=== PATIENT | male | born 1965 | race Caucasian/White ===

== ENCOUNTER 2016-05-15 15:58 | Emergency (ER) | payer BC ==
[2016-05-15] MEDS ORDERED: ONDANSETRON 4 MG/2 ML VIAL IVP STA (17:33)
[2016-05-15] MEDS ORDERED: SODIUM CHLORIDE 0.9% 1,000 ML IV STA (17:33)
[2016-05-15] MEDS ORDERED: ACETAMINOPHEN IV (For NPO) 1,000 MG in SALINE 100 100ML.BAG IVPB STA (17:34)
--- NOTE | 2016-05-15 17:36 | ED ---
General Adult HPI - General Chief complaint: Abdominal Pain Stated complaint: Stomach Pain Time Seen by Provider: 05/15/16 17:26 Source: patient, RN notes reviewed Mode of arrival: ambulatory Limitations: no limitations - History of Present Illness Initial comments: Patient is a 51-year-old male who presents emergency room today with chief complaint of increased lower abdominal pain that began this morning. He does admit pain started after eating apple. States pain has progressed today. States it reminds him of symptoms that he had when he had an episode of diverticulitis proximate 10 years ago. Patient describes a sharp pain located in the left lower quadrant. Patient admits is worse with palpation. He denies any other complaints or associated symptoms. Patient denies any recent fever, chills, shortness of breath, chest pain, back pain, nausea or vomiting, numbness or tingling, dysuria or hematuria, constipation or diarrhea, headaches or visual changes, or any other complaints. - Related Data Home Medications Medication Instructions Recorded Confirmed Albuterol Inhaler [Ventolin Hfa 1 - 2 puff INHALATION RT-Q6H PRN 05/15/16 Inhaler] Previous Rx's Medication Instructions Recorded Ciprofloxacin HCl [Cipro] 500 mg PO Q12HR #20 day 05/15/16 Hydrocodone/Acetaminophen [Gering 1 each PO Q6HR PRN #20 tab 05/15/16 5-325] metroNIDAZOLE [Flagyl] 500 mg PO TID 7 Days 05/15/16 Allergies Allergy/AdvReac Type Severity Reaction Status Date / Time Penicillins Allergy Rash/Hives Verified 05/15/16 17:42 Review of Systems ROS Statement: Those systems with pertinent positive or pertinent negative responses have been documented in the HPI. ROS Other: All systems not noted in ROS Statement are negative. Past Medical History Past Medical History: Asthma Additional Past Medical History / Comment(s): diverticulitis History of Any Multi-Drug Resistant Organisms: None Reported Past Surgical History: Cholecystectomy Past Psychological History: No Psychological Hx Reported Smoking Status: Never smoker Past Alcohol Use History: Occasional Past Drug Use History: None Reported General Exam - General Exam Comments Initial Comments: General: The patient is awake and alert, in no distress, and does not appear acutely ill. Eye: Pupils are equal, round and reactive to light, extra-ocular movements are intact. No nystagmus. There is normal conjunctiva bilaterally. No signs of icterus. Ears, nose, mouth and throat: There are moist mucous membranes and no oral lesions. Neck: The neck is supple, there is no tenderness or JVD. Cardiovascular: There is a regular rate and rhythm. No murmur, rub or gallop is appreciated. Respiratory: Lungs are clear to auscultation, respirations are non-labored, breath sounds are equal. No wheezes, stridor, rales, or rhonchi. Gastrointestinal: Normal. Statin. Normal bowel sounds. Abdomen soft on palpation. Patient does have tenderness left lower quadrant. No rebound tenderness. No guarding. No CVA tenderness. Musculoskeletal: Normal ROM, no tenderness. Strength 5/5. Sensation intact. Pulses equal bilaterally 2+. Neurological: A&O x 3. CN II-XII intact, There are no obvious motor or sensory deficits. Coordination appears grossly intact. Speech is normal. Skin: Skin is warm and dry and no rashes or lesions are noted. Psychiatric: Cooperative, appropriate mood & affect, normal judgment. Limitations: no limitations Course Vital Signs 05/15/16 16:18 Temperature 98.8 F Pulse Rate 73 Respiratory 17 Rate Blood Pressure 148/93 O2 Sat by Pulse 97 Oximetry Medical Decision Making - Medical Decision Making Case discussed in detail with attending physician Dr. Jaime. The patient reexamined at this time shows no signs of distress. Patient resting comfortably in the stretcher. Patient's labs been reviewed. Patient's CT does show evidence of diverticulitis. Results were discussed with the patient. Patient will be discharged home. He'll be started on antibiotics of ciprofloxacin and Flagyl. prescription of pain medication use if needed. Advised follow-up the family doctor over the next 2 days. Advised return to emergency room if any symptoms increase or worsen. Patient states understanding and is in agreement. - Lab Data Result diagrams: 05/15/16 17:50 05/15/16 17:50 Lab Results 05/15/16 05/15/16 05/15/16 Range/Units 17:50 17:50 17:50 WBC 8.4 (3.8-10.6) k/uL RBC 5.39 (4.30-5.90) m/uL Hgb 16.0 (13.0-17.5) gm/dL Hct 46.5 (39.0-53.0) % MCV 86.3 (80.0-100.0) fL MCH 29.6 (25.0-35.0) pg MCHC 34.3 (31.0-37.0) g/dL RDW 12.8 (11.5-15.5) % Plt Count 224 (150-450) k/uL Neutrophils % 74 % Lymphocytes % 18 % Monocytes % 6 % Eosinophils % 1 % Basophils % 0 % Neutrophils # 6.2 (1.3-7.7) k/uL Lymphocytes # 1.5 (1.0-4.8) k/uL Monocytes # 0.5 (0-1.0) k/uL Eosinophils # 0.1 (0-0.7) k/uL Basophils # 0.0 (0-0.2) k/uL Sodium 140 (137-145) mmol/L Potassium 4.0 (3.5-5.1) mmol/L Chloride 104 (98-107) mmol/L Carbon Dioxide 23 (22-30) mmol/L Anion Gap 13 mmol/L BUN 14 (9-20) mg/dL Creatinine 0.80 (0.66-1.25) mg/dL Est GFR (MDRD) Af Amer >60 (>60 ml/min/1.73 sqM) Est GFR (MDRD) Non-Af >60 (>60 ml/min/1.73 sqM) Glucose 97 (74-99) mg/dL Plasma Lactic Acid Nathanael 0.6 L (0.7-2.0) mmol/L Calcium 9.8 (8.4-10.2) mg/dL Total Bilirubin 2.0 H (0.2-1.3) mg/dL AST 30 (17-59) U/L ALT 42 (21-72) U/L Alkaline Phosphatase 65 (38-126) U/L Total Protein 7.8 (6.3-8.2) g/dL Albumin 4.7 (3.5-5.0) g/dL Lipase 49 (23-300) U/L Urine Color Urine Appearance (Clear) Urine pH (5.0-8.0) Ur Specific [place] (1.001-1.035) Urine Protein (Negative) Urine Glucose (UA) (Negative) Urine Ketones (Negative) Urine Blood (Negative) Urine Nitrate (Negative) Urine Bilirubin (Negative) Urine Urobilinogen (<2.0) mg/dL Ur Leukocyte Esterase (Negative) Urine RBC (0-5) /hpf Urine WBC (0-5) /hpf Urine Mucus (None) /hpf 05/15/16 Range/Units 18:00 WBC (3.8-10.6) k/uL RBC (4.30-5.90) m/uL Hgb (13.0-17.5) gm/dL Hct (39.0-53.0) % MCV (80.0-100.0) fL MCH (25.0-35.0) pg MCHC (31.0-37.0) g/dL RDW (11.5-15.5) % Plt Count (150-450) k/uL Neutrophils % % Lymphocytes % % Monocytes % % Eosinophils % % Basophils % % Neutrophils # (1.3-7.7) k/uL Lymphocytes # (1.0-4.8) k/uL Monocytes # (0-1.0) k/uL Eosinophils # (0-0.7) k/uL Basophils # (0-0.2) k/uL Sodium (137-145) mmol/L Potassium (3.5-5.1) mmol/L Chloride (98-107) mmol/L Carbon Dioxide (22-30) mmol/L Anion Gap mmol/L BUN (9-20) mg/dL Creatinine (0.66-1.25) mg/dL Est GFR (MDRD) Af Amer (>60 ml/min/1.73 sqM) Est GFR (MDRD) Non-Af (>60 ml/min/1.73 sqM) Glucose (74-99) mg/dL Plasma Lactic Acid Nathanael (0.7-2.0) mmol/L Calcium (8.4-10.2) mg/dL Total Bilirubin (0.2-1.3) mg/dL AST (17-59) U/L ALT (21-72) U/L Alkaline Phosphatase (38-126) U/L Total Protein (6.3-8.2) g/dL Albumin (3.5-5.0) g/dL Lipase (23-300) U/L Urine Color Yellow Urine Appearance Clear (Clear) Urine pH 5.5 (5.0-8.0) Ur Specific [place] 1.011 (1.001-1.035) Urine Protein Negative (Negative) Urine Glucose (UA) Negative (Negative) Urine Ketones Negative (Negative) Urine Blood Trace H (Negative) Urine Nitrate Negative (Negative) Urine Bilirubin Negative (Negative) Urine Urobilinogen <2.0 (<2.0) mg/dL Ur Leukocyte Esterase Negative (Negative) Urine RBC 2 (0-5) /hpf Urine WBC <1 (0-5) /hpf Urine Mucus Rare H (None) /hpf Disposition Clinical Impression: Acute diverticulitis Disposition: HOME SELF-CARE Condition: Good Instructions: Diverticulitis (ED) Additional Instructions: Please use medication as discussed. Please follow-up with family doctor in the next 2 days of symptoms have not improved. Please return to emergency room if the symptoms increase or worsen or for any other concerns. Prescriptions: Ciprofloxacin HCl [Cipro] 500 mg PO Q12HR #20 day Hydrocodone/Acetaminophen [Gering 5-325] 1 each PO Q6HR PRN #20 tab PRN Reason: Pain metroNIDAZOLE [Flagyl] 500 mg PO TID 7 Days Time of Disposition: 19:43
[2016-05-15 18:21] LABS: ALT 42 U/L (21-72); AST 30 U/L (17-59); Alkaline Phosphatase 65 U/L (38-126); Anion Gap 13 mmol/L; Blood Urea Nitrogen 14 mg/dL (9-20); Calcium 9.8 mg/dL (8.4-10.2); Carbon Dioxide 23 mmol/L (22-30); Chloride 104 mmol/L (98-107); Glucose 97 mg/dL (74-99); Non-African American GFR(MDRD) >60 (>60 ml/min/1.73 sqM); Sodium 140 mmol/L (137-145); Total Protein 7.8 g/dL (6.3-8.2)
[2016-05-15 18:22] LABS: Basophils % (A) 0 %; CH 31.7; CHCM 36.8; Eosinophils # (A) 0.1 k/uL (0-0.7); Eosinophils % (A) 1 %; HCT 46.5 % (39.0-53.0); HDW 2.93; Luc # (Auto) 0.14; Luc % (Auto) 2; Lymphocytes # (A) 1.5 k/uL (1.0-4.8); Lymphocytes % (A) 18 %; MCH 29.6 pg (25.0-35.0); MCHC 34.3 g/dL (31.0-37.0); MCV 86.3 fL (80.0-100.0); Mean Platelet Volume 6.6; Monocytes # (A) 0.5 k/uL (0-1.0); Monocytes % (A) 6 %; Neutrophils # (A) 6.2 k/uL (1.3-7.7); Neutrophils % (A) 74 %; RBC 5.39 m/uL (4.30-5.90); RDW 12.8 % (11.5-15.5); WBC 8.4 k/uL (3.8-10.6); WBC (Perox) 8.04
--- NOTE | 2016-05-15 18:23 | XR ---
Abdomen HISTORY: Abdomen pain Frontal view of the abdomen submitted on 2 images and correlated to prior CT abdomen pelvis 18 April 2012 There is a mild spinal curvature. Lung bases are clear. Surgical clips are present in the right upper quadrant. Calcifications within the pelvis likely represent phleboliths. IMPRESSION: No acute abnormality.
[2016-05-15] MEDS ORDERED: RX INFO: IV CONTRAST WAS GIVEN 1 EACH MISC MISCELLANE PRN (18:25)
[2016-05-15 18:26] LABS: Appearance,Urine Clear (Clear); Bilirubin,Urine Negative (Negative); Glucose,Urine (UA) Negative (Negative); Ketones,Urine Negative (Negative); Leukocyte Esterase,Urine Negative (Negative); Mucus,Urine Rare /hpf; Nitrite,Urine Negative (Negative); PH, Urine 5.5 (5.0-8.0); Particle Count 1098; Protein,Urine Negative (Negative); RBC,Urine 2 /hpf (0-5); Specific Gravity,Urine 1.011 (1.001-1.035); UA Billing (MACRO vs. MICRO) MICRO; Urobilinogen,Urine <2.0 mg/dL (<2.0); WBC,Urine <1 /hpf (0-5)
--- NOTE | 2016-05-15 19:18 | CT ---
EXAMINATION TYPE: CT abdomen pelvis w con DATE OF EXAM: 05/15/2016 6:55 PM COMPARISON: Prior CT scan fourth April 2012 HISTORY: Pt states of lower abdominal pain x1 day. Hx of diverticulosis CT DLP: 1065.8 mGycm Automated exposure control for dose reduction was used. TECHNIQUE: Helical acquisition of images was performed from the lung bases through the pelvis. CONTRAST: Performed without Oral Contrast and with IV Contrast, patient injected with 100 mL of Omnipaque 300. FINDINGS: LUNG BASES: No significant abnormality is appreciated. LIVER/GB: Patient is post cholecystectomy. Liver shows low attenuation, the liver is enlarged. PANCREAS: No significant abnormality is seen. SPLEEN: No significant abnormality is seen. ADRENALS: No significant abnormality is seen. KIDNEYS: No significant abnormality is seen. RETROPERITONEAL ADENOPATHY: None visualized REPRODUCTIVE ORGANS: There are prostate calcifications. URINARY BLADDER: No significant abnormality is seen. PELVIC ADENOPATHY: None visualized. OSSEOUS STRUCTURES: No significant abnormality is seen. BOWEL: There is inflammatory change, diverticular change in the left lower quadrant, rectosigmoid ju nction. 30 fat is present. There is some local wall thickening. OTHER: IMPRESSION: FINDINGS COMPATIBLE WITH DIVERTICULITIS. FOLLOW-UP RECOMMENDED.
[2016-05-15 19:56] VITALS: BP 132/92; PULSE 79; RESP 16; TEMP 98.9
== END 2016-05-15 20:09 | disposition home or self-care (01) ==
LOC: EC 15:58
DX: K57.92 Diverticulitis of intestine, part unspecified, without perforation or abscess without bleeding (principal); Z88.0 Allergy status to penicillin
CPT/HCPCS: 36415; 80053; 83605; 83690; 85025; 81001; 74000; 74177; 99284; 96374; 96375; 96361; J2405; Q9967; J0131

== ENCOUNTER → 2016-09-17 | Day surgery (SDC) | payer BC ==
[2016-09-13 12:42] VITALS: BMI 29.1
[~2016-09-17] MED LIST: LACTATED RINGERS 1,000 ML IV SCH; LIDOCAINE 1% 20 ML VIAL (10MG/ML) FOR IV START INTRADERMA PRN; PROPOFOL 10 MG/ML 20 ML VIAL IV ONE
[2016-09-17 09:12] VITALS: TEMP 97.3
--- NOTE | 2016-09-17 10:20 | P.PCN ---
Date of Procedure: 09/17/16 Preoperative Diagnosis: Postoperative Diagnosis: Procedure(s) Performed: Procedure: Total colonoscopy. Preoperative diagnosis: Screening for neoplasia. Postoperative diagnosis: Diverticulosis with no evidence of acute diverticulitis , strictures, polyps or cancer. Preparation: HalfLytely prep. Sedation: Was provided by anesthesia. Brief clinical history: The patient is a 51-year-old male who is scheduled for this evaluation for screening for neoplasia age being his risk factor. His mother had stomach cancer, but there is no family history of colon cancer. The patient has no abdominal complaints at this time or any bleeding or anemia. He had a prior colonoscopy 5 or 6 years ago following a bout of diverticulitis. Procedure: With the patient on his left lateral decubitus position and after informed consent and adequate sedation, the perianal area was inspected and it did not show any fissures or fistulas. There were no masses felt on digital rectal examination. The Olympus CFQ 160L video colonoscope was then inserted in the rectum in the usual fashion and advanced to the cecum. There were multiple diverticular orifices seen scattered in the sigmoid with no evidence of acute diverticulitis or strictures. There was some submucosal hemorrhages seen in the vicinity of diverticular orifices raising the possibility of prior bout of diverticulitis. There was occasional small diverticular orifice seen on the right colon and cecum. No polyps or tumors were seen. I retroflexed the endoscope in the rectum before the endoscope was withdrawn. Low-grade internal hemorrhoids were noted but there was no bleeding. The patient tolerated the procedure well. Plan: The patient was reassured. Discussed dietary measures. In the absence of family history of colon cancer, and the absence of history of polyps, I recommended a repeat exam in 10 years. He will follow up with you as planned. Implants: Indications for Procedure: Operative Findings: Description of Procedure:
[2016-09-17 10:22] VITALS: RESP 18
[2016-09-17 10:45] VITALS: BP 125/83; PULSE 86
== END ==
LOC: ORWHC2ENDO 08:27
DX: Z12.11 Encounter for screening for malignant neoplasm of colon (principal); K57.30 Diverticulosis of large intestine without perforation or abscess without bleeding; K64.8 Other hemorrhoids; J45.909 Unspecified asthma, uncomplicated; Z88.0 Allergy status to penicillin; Z80.0 Family history of malignant neoplasm of digestive organs; Z79.899 Other long term (current) drug therapy
CPT/HCPCS: J2704; G0121

== ENCOUNTER 2016-10-08 09:38 | Day surgery (SDC) | payer BC ==
[2016-10-03 12:11] VITALS: BMI 29.2
[~2016-10-08 09:38] MED LIST changes: -PROPOFOL 10 MG/ML 20 ML VIAL IV ONE
[2016-10-08 09:59] VITALS: TEMP 97.8
[2016-10-08] MEDS ORDERED: PROPOFOL 10 MG/ML 20 ML VIAL IV ONE (10:35)
--- NOTE | 2016-10-08 10:56 | P.PCN ---
Date of Procedure: 10/08/16 Preoperative Diagnosis: Postoperative Diagnosis: Procedure(s) Performed: Procedure: Esophagogastroduodenoscopy and biopsy. Preoperative diagnosis: Dyspepsia and family history of gastric cancer in his mother. Postoperative diagnosis: 1. Small sliding hiatal hernia with no obvious esophagitis or complicated reflux disease. 2. Antral gastritis with no ulcers or gastric outlet obstruction. 3. Multiple biopsies obtained from the duodenum , antrum and esophagus. Preparation and sedation: Was provided by anesthesia. Brief clinical history: The patient is a 51-year-old male who I have evaluated earlier this month with colonoscopy that showed evidence of diverticulosis. The patient has family history of stomach cancers in his mother and has been having nausea-kind symptoms since around May. He is worried that we could be dealing with upper GI pathology. This evaluation is to assess for peptic ulcer disease, cancer or other pathology. Procedure: With the patient on his left lateral decubitus position and after informed consent and adequate sedation, I passed the Olympus-GIF 160 video upper endoscope through the cricopharyngeus down the esophagus. GE junction was around 41-42 cm from the incisors and there was a small sliding hiatal hernia between 1-2 cm. The esophagus did not show any obvious erosions, ulcers , strictures or Chapa's esophagus. The endoscope was then passed into the stomach which was insufflated with air and inspected in detail including the retroflex view in the cardia. There was some mottling and erythema in the antrum with linear submucosal hemorrhages but no ulcers or erosions. Pyloric channel, duodenal bulb, post bulbar area and descending duodenum appeared within normal limits. I obtained pictures then I obtained biopsies from the duodenum, antrum and esophagus before the endoscope was withdrawn. The patient tolerated the procedure well. Plan: The patient was reassured. Will await biopsy results. Further plans can be made based on his course and biopsy results. He will follow up with you as planned and I will be happy to see in the office if his symptoms persist. Implants: Indications for Procedure: Operative Findings: Description of Procedure:
[2016-10-08 11:16] VITALS: BP 105/68; PULSE 68; RESP 16
== END 2016-10-08 11:34 | disposition home or self-care (01) ==
LOC: ORWHC2ENDO 09:38
DX: K29.70 Gastritis, unspecified, without bleeding (principal); K44.9 Diaphragmatic hernia without obstruction or gangrene; Z80.0 Family history of malignant neoplasm of digestive organs; J45.909 Unspecified asthma, uncomplicated; Z79.899 Other long term (current) drug therapy; Z88.0 Allergy status to penicillin
CPT/HCPCS: 43239; J2704; 88305; 88342

== ENCOUNTER 2018-12-23 05:24 | Emergency (ER) | payer BC ==
[2018-12-23 05:28] VITALS: RESP 18; TEMP 97.6
--- NOTE | 2018-12-23 05:53 | ED ---
Abdominal Pain HPI - General Source: patient Mode of arrival: ambulatory Limitations: no limitations <Brianda Waterman - Last Filed: 12/23/18 07:20> <Kody Dennis - Last Filed: 12/23/18 08:47> - General Chief Complaint: Abdominal Pain Stated Complaint: abd pain Time Seen by Provider: 12/23/18 05:48 - History of Present Illness Initial Comments: Jessica is a 53-year-old male presenting to the ER this morning for evaluation of progressively worsening lower abdominal pain. Patient reports that he has a history of diverticulitis approximately 2 years ago. He states that yesterday evening he began having lower abdominal pain Him awake throughout the night. Pain is associated with decreased appetite. No change in bowel or bladder habits. Patient's concerning is her recurrent episodes of diverticulitis. (Brianda Waterman) - Related Data Home Medications Medication Instructions Recorded Confirmed Albuterol Inhaler [Ventolin Hfa 2 puff INHALATION RT-Q6H PRN 12/23/18 12/23/18 Inhaler] Previous Rx's Medication Instructions Recorded Ciprofloxacin HCl [Cipro] 500 mg PO Q12HR #18 tablet 12/23/18 metroNIDAZOLE [Flagyl] 500 mg PO QID #40 tab 12/23/18 Allergies Allergy/AdvReac Type Severity Reaction Status Date / Time Penicillins Allergy Rash/Hives Verified 12/23/18 07:40 Review of Systems ROS Other: All systems not noted in ROS Statement are negative. <Brianda Waterman - Last Filed: 12/23/18 07:20> ROS Other: All systems not noted in ROS Statement are negative. <Kody Dennsi - Last Filed: 12/23/18 08:47> ROS Statement: Those systems with pertinent positive or pertinent negative responses have been documented in the HPI. Past Medical History Past Medical History: Asthma, Pneumonia Additional Past Medical History / Comment(s): diverticulitis History of Any Multi-Drug Resistant Organisms: None Reported Past Surgical History: Cholecystectomy, Orthopedic Surgery Additional Past Surgical History / Comment(s): ARVIND SHOULDER SURGERY, COLONOSCOPY. Past Anesthesia/Blood Transfusion Reactions: No Reported Reaction Past Psychological History: No Psychological Hx Reported Smoking Status: Never smoker - Past Family History Mother Family Medical History: Cancer Additional Family Medical History / Comment(s): STOMACH CANCER, BRAIN TUMOR, FROM ANEURYSM. <Brianda Waterman - Last Filed: 12/23/18 07:20> General Exam Limitations: no limitations <Brianda Waterman - Last Filed: 12/23/18 07:20> - General Exam Comments Initial Comments: Physical Exam GENERAL: Uncomfortable appearing male, appears stated age HENT: Normocephalic, Atraumatic. EYES: PERRL, EOMI PULMONARY: Unlabored respirations. No audible rales rhonchi or wheezing was noted. CARDIOVASCULAR: There is a regular rate and rhythm without any murmurs gallops or rubs. ABDOMEN: SKIN: Skin is clear with no lesions or rashes and otherwise unremarkable. : Deferred NEUROLOGIC: Patient is alert and oriented x3. Moving all extremities spontaneously MUSCULOSKELETAL: Normal extremities with adequate strength and full range of motion. No lower extremity swelling or edema. No calf tenderness. PSYCHIATRIC: Normal psychiatric evaluation. (Brianda Waterman) Course Vital Signs 12/23/18 12/23/18 05:24 06:57 Temperature 97.6 F 97.6 F Pulse Rate 75 86 Respiratory 18 18 Rate Blood Pressure 145/94 122/102 O2 Sat by Pulse 100 96 Oximetry Medical Decision Making - Lab Data Result diagrams: 12/23/18 05:51 12/23/18 05:51 <Brianda Waterman - Last Filed: 12/23/18 07:20> - Lab Data Result diagrams: 12/23/18 05:51 12/23/18 05:51 - Radiology Data Radiology results: report reviewed (ET scan of the abdomen pelvis shows acute uncompensated diverticulitis, similar to previous evaluation in 2017.) <Kody Dennis - Last Filed: 12/23/18 08:47> - Medical Decision Making Patient reevaluated and resting comfortably at bedside. Patient updated on results. Patient does have mild to moderate tenderness of the lower abdomen. Patient is offered admission however refuses and requests discharge with antibiotics and pain medication. (Kody Dennis) - Lab Data Lab Results 12/23/18 12/23/18 12/23/18 Range/Units 05:51 05:51 05:54 WBC 7.8 (3.8-10.6) k/uL RBC 5.00 (4.30-5.90) m/uL Hgb 15.4 (13.0-17.5) gm/dL Hct 44.2 (39.0-53.0) % MCV 88.4 (80.0-100.0) fL MCH 30.7 (25.0-35.0) pg MCHC 34.8 (31.0-37.0) g/dL RDW 14.8 (11.5-15.5) % Plt Count 185 (150-450) k/uL Neutrophils % 79 % Lymphocytes % 13 % Monocytes % 5 % Eosinophils % 2 % Basophils % 0 % Neutrophils # 6.1 (1.3-7.7) k/uL Lymphocytes # 1.0 (1.0-4.8) k/uL Monocytes # 0.4 (0-1.0) k/uL Eosinophils # 0.1 (0-0.7) k/uL Basophils # 0.0 (0-0.2) k/uL Sodium 140 (137-145) mmol/L Potassium 4.3 (3.5-5.1) mmol/L Chloride 108 H (98-107) mmol/L Carbon Dioxide 24 (22-30) mmol/L Anion Gap 8 mmol/L BUN 16 (9-20) mg/dL Creatinine 0.86 (0.66-1.25) mg/dL Est GFR (CKD-EPI)AfAm >90 (>60 ml/min/1.73 sqM) Est GFR (CKD-EPI)NonAf >90 (>60 ml/min/1.73 sqM) Glucose 115 H (74-99) mg/dL Calcium 9.6 (8.4-10.2) mg/dL Total Bilirubin 1.3 (0.2-1.3) mg/dL AST 28 (17-59) U/L ALT 24 (21-72) U/L Alkaline Phosphatase 51 (38-126) U/L Total Protein 7.0 (6.3-8.2) g/dL Albumin 4.1 (3.5-5.0) g/dL Amylase 39 (30-110) U/L Lipase 53 (23-300) U/L Urine Color Yellow Urine Appearance Clear (Clear) Urine pH 5.0 (5.0-8.0) Ur Specific [place] 1.016 (1.001-1.035) Urine Protein Negative (Negative) Urine Glucose (UA) Negative (Negative) Urine Ketones Trace H (Negative) Urine Blood Negative (Negative) Urine Nitrite Negative (Negative) Urine Bilirubin Negative (Negative) Urine Urobilinogen <2.0 (<2.0) mg/dL Ur Leukocyte Esterase Negative (Negative) Disposition <Brianda Waterman - Last Filed: 12/23/18 07:20> Is patient prescribed a controlled substance at d/c from ED?: No Time of Disposition: 08:47 <Kody Dennis - Last Filed: 12/23/18 08:47> Clinical Impression: Acute diverticulitis Disposition: HOME SELF-CARE Condition: Stable Instructions (If sedation given, give patient instructions): Diverticulitis (ED) Additional Instructions: Please follow-up to primary care physician in the next couple of days for recheck. Return for increased pain, not tolerating oral intake, fevers, vomiting, bleeding, worsening symptoms or other concerns. Antibiotic prescriptions have been [facility] to [facility]. Prescriptions: Ciprofloxacin HCl [Cipro] 500 mg PO Q12HR #18 tablet metroNIDAZOLE [Flagyl] 500 mg PO QID #40 tab Referrals: Brandi Brown MD [Primary Care Provider] - 1-2 days
[2018-12-23 06:25] LABS: ALT 24 U/L (21-72); AST 28 U/L (17-59); African American GFR (CKD) >90 (>60 ml/min/1.73 sqM); Albumin 4.1 g/dL (3.5-5.0); Alkaline Phosphatase 51 U/L (38-126); Amylase 39 U/L (30-110); Anion Gap 8 mmol/L; Blood Urea Nitrogen 16 mg/dL (9-20); Calcium 9.6 mg/dL (8.4-10.2); Carbon Dioxide 24 mmol/L (22-30); Chloride 108 mmol/L (98-107); Glucose 115 mg/dL (74-99); Potassium 4.3 mmol/L (3.5-5.1); Sodium 140 mmol/L (137-145); Total Bilirubin 1.3 mg/dL (0.2-1.3)
[2018-12-23 06:35] LABS: Basophils % (A) 0 %; Eosinophils # (A) 0.1 k/uL (0-0.7); Eosinophils % (A) 2 %; HCT 44.2 % (39.0-53.0); HGB 15.4 gm/dL (13.0-17.5); Lymphocytes % (A) 13 %; MCH 30.7 pg (25.0-35.0); MCHC 34.8 g/dL (31.0-37.0); MCV 88.4 fL (80.0-100.0); Mean Platelet Volume 7.6; Monocytes # (A) 0.4 k/uL (0-1.0); Monocytes % (A) 5 %; Neutrophils # (A) 6.1 k/uL (1.3-7.7); Neutrophils % (A) 79 %; Platelet Count 185 k/uL (150-450); RDW 14.8 % (11.5-15.5); WBC 7.8 k/uL (3.8-10.6)
[2018-12-23 06:39] LABS: Appearance,Urine Clear (Clear); Bilirubin,Urine Negative (Negative); Blood,Urine Negative (Negative); Color,Urine Yellow; Glucose,Urine (UA) Negative (Negative); Ketones,Urine Trace (Negative); Leukocyte Esterase,Urine Negative (Negative); Nitrite,Urine Negative (Negative); Protein,Urine Negative (Negative); Specific Gravity,Urine 1.016 (1.001-1.035); Urobilinogen,Urine <2.0 mg/dL (<2.0)
[2018-12-23 06:58] VITALS: BP 122/102; PULSE 86
[2018-12-23] MEDS ORDERED: MORPHINE SULFATE 4 MG/ML SYRINGE IVP STA (07:19)
[2018-12-23] MEDS ORDERED: ONDANSETRON 4 MG/2 ML VIAL IVP STA (07:19)
--- NOTE | 2018-12-23 08:03 | CT ---
EXAMINATION TYPE: CT abdomen pelvis w con DATE OF EXAM: 12/23/2018 COMPARISON: CT abdomen and pelvis May 15, 2016 HISTORY: Mid pelvic pain, history of diverticulitis. CT DLP: 1425.7 mGycm, Automated Exposure Control for Dose Reduction was Utilized. CONTRAST: CT scan of the abdomen and pelvis is performed without oral but with IV Contrast, patient injected wi th 100 mL of Isovue 300. FINDINGS: LUNG BASES: No significant abnormality is appreciated. LIVER/GB: Cholecystectomy clips are redemonstrated. Liver size stable upper limits of normal. PANCREAS: No significant abnormality is seen. SPLEEN: No significant abnormality is seen. ADRENALS: No significant abnormality is seen. KIDNEYS: No significant abnormality is seen. BOWEL: Evaluation bowel slightly suboptimal secondary to lack of enteric contrast. Stomach is poorly distended and suboptimally evaluated. No suspicious small or large bowel dilatation. A few scattered colonic diverticula with most prominent diverticula in the sigmoid colon. There is prominent divertic ulum in the upper pelvis just left of midline with moderate adjacent ill-defined fluid and fat strand ing axial image [address] and coronal image 41. CT findings consistent with acute diverticulitis. No well-fo rmed fluid collection or abscess is seen. No pneumoperitoneum is noted. PROSTATE/SEMINAL VESICLES: Prostate gland is slightly bulky and lobulated consistent with underlying BPH. Central calcifications are present. LYMPH NODES: No greater than 1cm abdominal or pelvic lymph nodes are appreciated. OSSEOUS STRUCTURES: No significant abnormality is seen. OTHER: No significant additional abnormality is seen. IMPRESSION: Redemonstration of recurrent moderate uncomplicated acute diverticulitis proximal sigmoid colon in the upper pelvis just left of midline as detailed above.
[2018-12-23] MEDS ORDERED: MORPHINE SULFATE 4 MG/ML SYRINGE IV STA (08:43)
[2018-12-23] MEDS ORDERED: metroNIDAZOLE 500 MG TAB PO STA (08:45)
[2018-12-23] MEDS ORDERED: LEVOFLOXACIN 750 MG TAB PO STA (08:45)
[2018-12-23] MEDS ORDERED: ACET/COD 300 MG/30 MG STARTER PACK 6 TAB BTL PO STA (08:47)
--- NOTE | 2018-12-23 08:57 | ED ---
Medical Decision Making - Lab Data Result diagrams: 12/23/18 05:51 12/23/18 05:51 Lab Results 12/23/18 12/23/18 12/23/18 Range/Units 05:51 05:51 05:54 WBC 7.8 (3.8-10.6) k/uL RBC 5.00 (4.30-5.90) m/uL Hgb 15.4 (13.0-17.5) gm/dL Hct 44.2 (39.0-53.0) % MCV 88.4 (80.0-100.0) fL MCH 30.7 (25.0-35.0) pg MCHC 34.8 (31.0-37.0) g/dL RDW 14.8 (11.5-15.5) % Plt Count 185 (150-450) k/uL Neutrophils % 79 % Lymphocytes % 13 % Monocytes % 5 % Eosinophils % 2 % Basophils % 0 % Neutrophils # 6.1 (1.3-7.7) k/uL Lymphocytes # 1.0 (1.0-4.8) k/uL Monocytes # 0.4 (0-1.0) k/uL Eosinophils # 0.1 (0-0.7) k/uL Basophils # 0.0 (0-0.2) k/uL Sodium 140 (137-145) mmol/L Potassium 4.3 (3.5-5.1) mmol/L Chloride 108 H (98-107) mmol/L Carbon Dioxide 24 (22-30) mmol/L Anion Gap 8 mmol/L BUN 16 (9-20) mg/dL Creatinine 0.86 (0.66-1.25) mg/dL Est GFR (CKD-EPI)AfAm >90 (>60 ml/min/1.73 sqM) Est GFR (CKD-EPI)NonAf >90 (>60 ml/min/1.73 sqM) Glucose 115 H (74-99) mg/dL Calcium 9.6 (8.4-10.2) mg/dL Total Bilirubin 1.3 (0.2-1.3) mg/dL AST 28 (17-59) U/L ALT 24 (21-72) U/L Alkaline Phosphatase 51 (38-126) U/L Total Protein 7.0 (6.3-8.2) g/dL Albumin 4.1 (3.5-5.0) g/dL Amylase 39 (30-110) U/L Lipase 53 (23-300) U/L Urine Color Yellow Urine Appearance Clear (Clear) Urine pH 5.0 (5.0-8.0) Ur Specific [place] 1.016 (1.001-1.035) Urine Protein Negative (Negative) Urine Glucose (UA) Negative (Negative) Urine Ketones Trace H (Negative) Urine Blood Negative (Negative) Urine Nitrite Negative (Negative) Urine Bilirubin Negative (Negative) Urine Urobilinogen <2.0 (<2.0) mg/dL Ur Leukocyte Esterase Negative (Negative) Disposition Clinical Impression: Acute diverticulitis Disposition: HOME SELF-CARE Condition: Stable Instructions (If sedation given, give patient instructions): Diverticulitis (ED) Additional Instructions: Please follow-up to primary care physician in the next couple of days for recheck. Return for increased pain, not tolerating oral intake, fevers, vomiting, bleeding, worsening symptoms or other concerns. Antibiotic prescriptions have been sent to [facility]. Prescriptions: Ciprofloxacin HCl [Cipro] 500 mg PO Q12HR #18 tablet metroNIDAZOLE [Flagyl] 500 mg PO QID #40 tab Hydrocodone/Acetaminophen [[place] 5-325] 1 each PO Q4HR PRN #15 tab PRN Reason: Pain Is patient prescribed a controlled substance at d/c from ED?: Yes When asked, does pt state using other controlled substances?: No If prescribed controlled substance>3 days was MAPS reviewed?: Prescribed <3 Days If opioid is for acute pain is fill amount 7 days or less?: Yes If Rx opioid, was Start Talking consent form obtained?: Yes Referrals: Brandi Brown MD [Primary Care Provider] - 1-2 days
== END 2018-12-23 09:00 | disposition home or self-care (01) ==
LOC: EC 05:24
DX: K57.92 Diverticulitis of intestine, part unspecified, without perforation or abscess without bleeding (principal); J45.909 Unspecified asthma, uncomplicated; Z90.49 Acquired absence of other specified parts of digestive tract; Z79.899 Other long term (current) drug therapy; Z88.0 Allergy status to penicillin; Z53.29 Procedure and treatment not carried out because of patient's decision for other reasons
CPT/HCPCS: 36415; 80053; 82150; 83690; 85025; 81003; 74177; 99284; 96374; 96375; 96376; J2270; J2405; Q9967

== ENCOUNTER → 2019-06-30 | Outpatient (CLI) | payer BC ==
[2019-06-30 14:56] LABS: INR 0.9 (<1.2); Partial Thromboplastin Time 23.3 sec (22.0-30.0); Prothrombin Time 9.7 sec (9.0-12.0)
[2019-06-30 21:00] LABS: Cardiolipin Ab IgG Interp NEGATIVE (NEGATIVE); Cardiolipin Ab IgM Interp NEGATIVE (NEGATIVE); Cardiolipin IgA Antibody 1.4 U/mL; Cardiolipin IgM Antibody 5.9 U/mL
[2019-07-01 13:23] LABS: APTT 40 Sec(s) (<43); DRVVT 1:1 Mix 40 Sec(s) (<44); Dilute Russell Viper Venom 46 Sec(s) (<44)
== END | disposition home or self-care (01) ==
LOC: LABWHC1 14:20
PROVIDERS: ATTEND Psychiatry & Neurology Neurology
DX: I67.9 Cerebrovascular disease, unspecified (principal); R93.89 Abnormal findings on diagnostic imaging of other specified body structures
CPT/HCPCS: 36415; 85610; 85613; 85652; 85730; 86038; 86147

== ENCOUNTER → 2020-02-08 | Outpatient (CLI) | payer BC ==
--- NOTE | 2020-02-08 11:06 | P.STRESS ---
- Stress Test Note Stress Test Results/Findings: Exam Performed: stress test Exam Date: 02/08/20 Reason for Exam: HYPERTENSION Height: 6 ft Weight: 97.522 kg Protocol: YEVGENIY Stage: III Duration of Exercise: 9:00 Resting Heart Rate: 85 Resting Blood Pressure: 154/100 Maximum Achieved Heart Rate: 157 Maximum Achieved Blood Pressure: 232/93 85% PMHR: 141 100% PMHR: 166 METS: 10.3 Technologist Comment: Stress Test Results/Findings: This is a 55-year-old gentleman with history of hypertension and COPD being evaluated for symptoms of shortness of breath. The patient is also obese. No Stress data: Baseline EKG showed sinus rhythm with normal SC interval, QRS duration. Blood pressure at rest is 1 5400 with pulse rate of 85. Patient walked on the Yevgeniy protocol for 9 minutes achieving a maximum heart rate of 157 with a blood pressure of 232/93. EKGs taken during the operative site did not reveal any changes to suggest ischemia. Patient did not experience any chest pain. Final impression: #1. Negative stress test #2. patient did not experience any chest pain #3. No arrhythmias are noted. #4. Patient's exercise capacity is average
--- NOTE | 2020-02-08 12:23 | EST ---
Stress Test Results/Findings: Exam Performed: stress test Exam Date: 02/08/20 Reason for Exam: HYPERTENSION Height: 6 ft Weight: 97.522 kg Protocol: YEVGENIY Stage: III Duration of Exercise: 9:00 Resting Heart Rate: 85 Resting Blood Pressure: 154/100 Maximum Achieved Heart Rate: 157 Maximum Achieved Blood Pressure: 232/93 85% PMHR: 141 100% PMHR: 166 METS: 10.3 Technologist Comment: Stress Test Results/Findings: This is a 55-year-old gentleman with history of hypertension and COPD being evaluated for symptoms of shortness of breath. The patient is also obese. No Stress data: Baseline EKG showed sinus rhythm with normal LA interval, QRS duration. Blood pressure at rest is 1 5400 with pulse rate of 85. Patient walked on the Yevgeniy protocol for 9 minutes achieving a maximum heart rate of 157 with a blood pressure of 232/93. EKGs taken during the operative site did not reveal any changes to suggest ischemia. Patient did not experience any chest pain. Final impression: #1. Negative stress test #2. patient did not experience any chest pain #3. No arrhythmias are noted. #4. Patient's exercise capacity is average MTDD
== END | disposition home or self-care (01) ==
LOC: RADNMMAIN 10:08
PROVIDERS: ATTEND Family Medicine
DX: I10 Essential (primary) hypertension (principal)
CPT/HCPCS: 93017

== ENCOUNTER 2021-09-26 04:57 | Emergency (ER) | payer BC ==
[2021-09-26 05:07] VITALS: TEMP 98.2
[2021-09-26] MEDS ORDERED: ONDANSETRON 4 MG/2 ML VIAL IVP STA (05:18)
[2021-09-26] MEDS ORDERED: MORPHINE SULFATE 4 MG/ML SYRINGE IV STA (05:18)
[2021-09-26] MEDS ORDERED: SODIUM CHLORIDE 0.9% 1,000 ML IV STA (05:18)
--- NOTE | 2021-09-26 05:19 | ED ---
Abdominal Pain HPI <Giovanni Garcia - Last Filed: 09/26/21 07:51> - General Source: patient, RN notes reviewed, old records reviewed Mode of arrival: ambulatory Limitations: no limitations - History of Present Illness MD Complaint: abdominal pain -: days(s) Location: LLQ Radiation: LLQ, suprapubic Migration to: LLQ Severity: moderate Severity scale (1-10): 4 Quality: cramping, aching Consistency: constant Improves With: nothing Worsens With: nothing Associated Symptoms: nausea, vomiting Treatments Prior to Arrival: other (none) <Giovanni Booth - Last Filed: 09/27/21 02:13> - General Chief Complaint: Abdominal Pain Stated Complaint: Abdominal Pain, diverticulitis Time Seen by Provider: 09/26/21 05:16 - History of Present Illness Initial Comments: This is a 56-year-old male DF for evaluation of pain a she has abdominal pain history of abdominal pain and diverticulitis with surgery. Patient states he is currently having abdominal pain that feels like prior diverticulitis. Patient believes he has recurrent diverticulitis currently mild nausea no vomiting no other complaints patient has had prior surgery for diverticulitis as well as colonoscopy (Giovanni Booth) - Related Data Home Medications Medication Instructions Recorded Confirmed Albuterol Inhaler (Mhu) [Ventolin 2 puff INHALATION RT-Q6H PRN 12/23/18 12/23/18 Hfa Inhaler (Mhu)] Previous Rx's Medication Instructions Recorded Ciprofloxacin HCl [Cipro] 500 mg PO Q12HR #18 tablet 12/23/18 Hydrocodone/Acetaminophen [[place] 1 each PO Q4HR PRN #15 tab 12/23/18 5-325] metroNIDAZOLE [Flagyl] 500 mg PO QID #40 tab 12/23/18 Allergies Allergy/AdvReac Type Severity Reaction Status Date / Time Penicillins Allergy Rash/Hives Verified 09/26/21 05:07 Review of Systems ROS Other: All systems not noted in ROS Statement are negative. <Giovanni Garcia - Last Filed: 09/26/21 07:51> ROS Other: All systems not noted in ROS Statement are negative. <Giovanni Booth - Last Filed: 09/27/21 02:13> ROS Statement: Those systems with pertinent positive or pertinent negative responses have been documented in the HPI. Past Medical History Past Medical History: Asthma, Pneumonia Additional Past Medical History / Comment(s): diverticulitis History of Any Multi-Drug Resistant Organisms: None Reported Past Surgical History: Cholecystectomy, Orthopedic Surgery Additional Past Surgical History / Comment(s): ARVIND SHOULDER SURGERY, COLONOSCOPY. Past Anesthesia/Blood Transfusion Reactions: No Reported Reaction Past Psychological History: No Psychological Hx Reported Smoking Status: Never smoker Past Alcohol Use History: Occasional Past Drug Use History: None Reported - Past Family History Mother Family Medical History: Cancer Additional Family Medical History / Comment(s): STOMACH CANCER, BRAIN TUMOR, FROM ANEURYSM. <Giovanni Booth - Last Filed: 09/27/21 02:13> General Exam Limitations: no limitations General appearance: alert, in no apparent distress Head exam: Present: atraumatic, normocephalic, normal inspection Eye exam: Present: normal appearance, PERRL, EOMI. Absent: scleral icterus, conjunctival injection, periorbital swelling ENT exam: Present: normal exam, mucous membranes moist Neck exam: Present: normal inspection. Absent: tenderness, meningismus, lymp hadenopathy Respiratory exam: Present: normal lung sounds bilaterally. Absent: respiratory distress, wheezes, rales, rhonchi, stridor Cardiovascular Exam: Present: regular rate, normal rhythm, normal heart sounds. Absent: systolic murmur, diastolic murmur, rubs, gallop, clicks GI/Abdominal exam: Present: soft, normal bowel sounds. Absent: distended, tenderness, guarding, rebound, rigid Extremities exam: Present: normal inspection, full ROM, normal capillary refill. Absent: tenderness, pedal edema, joint swelling, calf tenderness Back exam: Present: normal inspection Neurological exam: Present: alert, oriented X3, CN II-XII intact Psychiatric exam: Present: normal affect, normal mood Skin exam: Present: warm, dry, intact, normal color. Absent: rash <Giovanni Booth - Last Filed: 09/27/21 02:13> Course <Giovanni Booth - Last Filed: 09/27/21 02:13> Vital Signs 09/26/21 09/26/21 09/26/21 05:05 05:07 06:07 Temperature 98.2 F Pulse Rate 74 72 70 Respiratory 18 16 14 Rate Blood Pressure 163/111 154/109 130/90 O2 Sat by Pulse 95 100 97 Oximetry 09/26/21 07:59 Temperature 98.2 F Pulse Rate 70 Respiratory 18 Rate Blood Pressure 133/91 O2 Sat by Pulse 99 Oximetry - Reevaluation(s) Reevaluation #1: 09/26/21 Medical record is reviewed (Giovanni Booth) Reevaluation #2: 09/26/21 Patient's pain is well improved (Giovanni Booth) Medical Decision Making - Lab Data Result diagrams: 09/26/21 05:45 09/26/21 05:45 <Giovanni Garcia - Last Filed: 09/26/21 07:51> - Lab Data Result diagrams: 09/26/21 05:45 09/26/21 05:45 - Radiology Data Radiology results: report reviewed (CT of the abdomen and pelvis negative for acute disease), image reviewed <Giovanni Booth - Last Filed: 09/27/21 02:13> - Medical Decision Making CT of the abdomen and pelvis showed no acute abnormality. I went back in and reevaluated the patient he was not point tender but just general tenderness on the left side. Patient states she's also been quite constant over the last few days. (Giovanni Garcia) - Lab Data Lab Results 09/26/21 09/26/21 09/26/21 Range/Units 05:19 05:45 05:45 WBC 4.9 (3.8-10.6) k/uL RBC 5.02 (4.30-5.90) m/uL Hgb 14.9 (13.0-17.5) gm/dL Hct 44.8 (39.0-53.0) % MCV 89.1 (80.0-100.0) fL MCH 29.8 (25.0-35.0) pg MCHC 33.4 (31.0-37.0) g/dL RDW 12.7 (11.5-15.5) % Plt Count 168 (150-450) k/uL MPV 7.4 Neutrophils % 61 % Lymphocytes % 27 % Monocytes % 5 % Eosinophils % 4 % Basophils % 1 % Neutrophils # 3.0 (1.3-7.7) k/uL Lymphocytes # 1.3 (1.0-4.8) k/uL Monocytes # 0.3 (0-1.0) k/uL Eosinophils # 0.2 (0-0.7) k/uL Basophils # 0.0 (0-0.2) k/uL Sodium 138 (137-145) mmol/L Potassium 4.0 (3.5-5.1) mmol/L Chloride 108 H (98-107) mmol/L Carbon Dioxide 25 (22-30) mmol/L Anion Gap 5 mmol/L BUN 14 (9-20) mg/dL Creatinine 0.72 (0.66-1.25) mg/dL Est GFR (CKD-EPI)AfAm >90 (>60 ml/min/1.73 sqM) Est GFR (CKD-EPI)NonAf >90 (>60 ml/min/1.73 sqM) Glucose 111 H (74-99) mg/dL Plasma Lactic Acid Nathanael (0.7-2.0) mmol/L Calcium 9.1 (8.4-10.2) mg/dL Total Bilirubin 0.9 (0.2-1.3) mg/dL AST 33 (17-59) U/L ALT 28 (4-49) U/L Alkaline Phosphatase 59 (38-126) U/L Total Protein 6.9 (6.3-8.2) g/dL Albumin 4.2 (3.5-5.0) g/dL Amylase 48 (30-110) U/L Lipase 58 (23-300) U/L Urine Color Yellow Urine Appearance Clear (Clear) Urine pH 5.5 (5.0-8.0) Ur Specific [place] 1.022 (1.001-1.035) Urine Protein Negative (Negative) Urine Glucose (UA) Negative (Negative) Urine Ketones Negative (Negative) Urine Blood Negative (Negative) Urine Nitrite Negative (Negative) Urine Bilirubin Negative (Negative) Urine Urobilinogen <2.0 (<2.0) mg/dL Ur Leukocyte Esterase Negative (Negative) 09/26/21 Range/Units 05:45 WBC (3.8-10.6) k/uL RBC (4.30-5.90) m/uL Hgb (13.0-17.5) gm/dL Hct (39.0-53.0) % MCV (80.0-100.0) fL MCH (25.0-35.0) pg MCHC (31.0-37.0) g/dL RDW (11.5-15.5) % Plt Count (150-450) k/uL MPV Neutrophils % % Lymphocytes % % Monocytes % % Eosinophils % % Basophils % % Neutrophils # (1.3-7.7) k/uL Lymphocytes # (1.0-4.8) k/uL Monocytes # (0-1.0) k/uL Eosinophils # (0-0.7) k/uL Basophils # (0-0.2) k/uL Sodium (137-145) mmol/L Potassium (3.5-5.1) mmol/L Chloride (98-107) mmol/L Carbon Dioxide (22-30) mmol/L Anion Gap mmol/L BUN (9-20) mg/dL Creatinine (0.66-1.25) mg/dL Est GFR (CKD-EPI)AfAm (>60 ml/min/1.73 sqM) Est GFR (CKD-EPI)NonAf (>60 ml/min/1.73 sqM) Glucose (74-99) mg/dL Plasma Lactic Acid Nathanael 1.5 (0.7-2.0) mmol/L Calcium (8.4-10.2) mg/dL Total Bilirubin (0.2-1.3) mg/dL AST (17-59) U/L ALT (4-49) U/L Alkaline Phosphatase (38-126) U/L Total Protein (6.3-8.2) g/dL Albumin (3.5-5.0) g/dL Amylase (30-110) U/L Lipase (23-300) U/L Urine Color Urine Appearance (Clear) Urine pH (5.0-8.0) Ur Specific [place] (1.001-1.035) Urine Protein (Negative) Urine Glucose (UA) (Negative) Urine Ketones (Negative) Urine Blood (Negative) Urine Nitrite (Negative) Urine Bilirubin (Negative) Urine Urobilinogen (<2.0) mg/dL Ur Leukocyte Esterase (Negative) Disposition Is patient prescribed a controlled substance at d/c from ED?: No Time of Disposition: 07:35 <Giovanni Garcia - Last Filed: 09/26/21 07:51> <Giovanni Booth - Last Filed: 09/27/21 02:13> Clinical Impression: Abdominal pain Disposition: HOME SELF-CARE Instructions (If sedation given, give patient instructions): Abdominal Pain (ED) Referrals: Brandi Brown MD [Primary Care Provider] - 1-2 days
[2021-09-26 05:56] LABS: Basophils % (A) 1 %; Eosinophils # (A) 0.2 k/uL (0-0.7); Eosinophils % (A) 4 %; HCT 44.8 % (39.0-53.0); HGB 14.9 gm/dL (13.0-17.5); Lymphocytes # (A) 1.3 k/uL (1.0-4.8); Lymphocytes % (A) 27 %; MCH 29.8 pg (25.0-35.0); MCHC 33.4 g/dL (31.0-37.0); MCV 89.1 fL (80.0-100.0); Mean Platelet Volume 7.4; Monocytes # (A) 0.3 k/uL (0-1.0); Monocytes % (A) 5 %; Neutrophils % (A) 61 %; Platelet Count 168 k/uL (150-450); RBC 5.02 m/uL (4.30-5.90); RDW 12.7 % (11.5-15.5); WBC 4.9 k/uL (3.8-10.6)
[2021-09-26 06:06] LABS: ALT 28 U/L (4-49); AST 33 U/L (17-59); African American GFR (CKD) >90 (>60 ml/min/1.73 sqM); Albumin 4.2 g/dL (3.5-5.0); Alkaline Phosphatase 59 U/L (38-126); Amylase 48 U/L (30-110); Anion Gap 5 mmol/L; Blood Urea Nitrogen 14 mg/dL (9-20); Calcium 9.1 mg/dL (8.4-10.2); Carbon Dioxide 25 mmol/L (22-30); Chloride 108 mmol/L (98-107); Glucose 111 mg/dL (74-99); Lipase 58 U/L (23-300); Non-African American GFR(CKD) >90 (>60 ml/min/1.73 sqM); Sodium 138 mmol/L (137-145); Total Bilirubin 0.9 mg/dL (0.2-1.3); Total Protein 6.9 g/dL (6.3-8.2)
[2021-09-26 06:24] VITALS: PULSE 70
[2021-09-26 07:18] LABS: Appearance,Urine Clear (Clear); Bilirubin,Urine Negative (Negative); Blood,Urine Negative (Negative); Color,Urine Yellow; Glucose,Urine (UA) Negative (Negative); Ketones,Urine Negative (Negative); Leukocyte Esterase,Urine Negative (Negative); Nitrite,Urine Negative (Negative); PH, Urine 5.5 (5.0-8.0); Protein,Urine Negative (Negative); Specific Gravity,Urine 1.022 (1.001-1.035); Urobilinogen,Urine <2.0 mg/dL (<2.0)
--- NOTE | 2021-09-26 07:18 | CT ---
EXAMINATION TYPE: CT abdomen pelvis w con DATE OF EXAM: 09/26/2021 COMPARISON: CT abdomen and pelvis December 23, 2018 HISTORY: Abdominal pain, diverticulitis CT DLP: 1548.8 mGycm, Automated Exposure Control for Dose Reduction was Utilized. CONTRAST: CT scan of the abdomen and pelvis is performed without oral but with IV Contrast, patient injected wi th 100 ml mL of Isovue 300. FINDINGS: LUNG BASES: No significant abnormality is appreciated. LIVER/GB: Cholecystectomy clips are redemonstrated. PANCREAS: No significant abnormality is seen. SPLEEN: No significant abnormality is seen. ADRENALS: No significant abnormality is seen. KIDNEYS: Letter poorly distended and suboptimally evaluated. BOWEL: Evaluation bowel slightly suboptimal secondary to lack of enteric contrast. No suspicious smal l or large bowel dilatation. A few scattered colonic diverticula with most prominent diverticula in t he sigmoid colon redemonstrated. No significant surrounding fluid or fat stranding currently. No well -formed fluid collection or abscess is seen. No free air is noted. PROSTATE/SEMINAL VESICLES: Prostate gland is slightly bulky and lobulated consistent with underlying BPH. Central calcifications are redemonstrated. LYMPH NODES: No greater than 1cm abdominal or pelvic lymph nodes are appreciated. OSSEOUS STRUCTURES: No significant abnormality is seen. OTHER: Small to moderate-sized fat-containing bilateral inguinal hernias are redemonstrated. IMPRESSION: Some distal colonic diverticulosis without convincing CT evidence for acute diverticuliti s currently. No suspicious new or acute findings identified.
[2021-09-26 08:00] VITALS: BP 133/91; RESP 18
== END 2021-09-26 08:00 | disposition home or self-care (01) ==
LOC: EC 04:57
DX: R10.32 Left lower quadrant pain (principal); J45.909 Unspecified asthma, uncomplicated; Z79.51 Long term (current) use of inhaled steroids
CPT/HCPCS: 36415; 80053; 82150; 83605; 83690; 85025; 81003; 74177; 99284; 96374; 96375; 96361 ×2; J2270; J2405; Q9967